=== PATIENT | male | born 1970 | race Caucasian/White ===

== ENCOUNTER 2016-12-25 11:59 | Emergency (ER) | payer SELFPAY ==
--- NOTE | 2016-12-25 12:27 | RAD ---
SHOULDER 2+V RIGHT History:Right shoulder pain for 2 days, unknown injury Comparison: None Findings:3 views right shoulder are submitted. No acute fracture or dislocation is identified. Impression: 1.No acute osseous abnormality is identified.
[2016-12-25 13:00] VITALS: BP 199/102
[2016-12-25] MEDS ORDERED: METH4TAB2 PO (13:40)
[2016-12-25] MEDS ORDERED: CYCL10TA2 PO (13:40)
[2016-12-25] MEDS ORDERED: NAPR500T8 PO (13:40)
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
== END 2016-12-25 13:51 | disposition home or self-care (01) ==
LOC: ER 11:59
DX: M75.81 Other shoulder lesions, right shoulder (principal); F12.10 Cannabis abuse, uncomplicated; F17.200 Nicotine dependence, unspecified, uncomplicated; Z88.5 Allergy status to narcotic agent
CPT/HCPCS: 73030; 99284-25

== ENCOUNTER 2017-12-21 13:53 | Emergency (ER) | payer SELFPAY ==
[2017-12-21 15:45] LABS: INFLUENZA A PATIENT NEGATIVE (NEGATIVE)
[2017-12-21 15:46] LABS: INFLUENZA B PATIENT POSITIVE (NEGATIVE); OBC FLU VALID
== END 2017-12-21 16:08 | disposition home or self-care (01) ==
LOC: ER 16:08
DX: J10.1 Influenza due to other identified influenza virus with other respiratory manifestations (principal); F12.10 Cannabis abuse, uncomplicated; Z88.5 Allergy status to narcotic agent
CPT/HCPCS: 71046; 87804; 87804-59; 99285-25

== ENCOUNTER 2019-05-20 21:39 | Emergency (ER) | payer SELFPAY ==
[~2019-05-20] VITALS: Ht 185.4 cm; Wt 90.7 kg
[~2019-05-20 21:39] MED LIST: BENZ100C PO; CYCL10TA2 PO; METH4TAB2 PO; NAPR500T8 PO; ONDA4TAB10 SL
[2019-05-20 21:42] VITALS: BP 183/96
[2019-05-20] MEDS ORDERED: METH4TAB2 PO (22:18)
[2019-05-20] MEDS ORDERED: CYCL10TA2 PO (22:18)
[2019-05-20] MEDS ORDERED: DICL50TA4 PO (22:18)
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
[2019-05-20] MEDS ORDERED: diazePAM 5 MG TABLET PO ONE (22:30)
[2019-05-20] MEDS ORDERED: predniSONE 10 MG TABLET PO ONE (22:30)
[2019-05-20] MEDS ORDERED: NAPROXEN 500 MG TABLET PO ONE (22:30)
== END 2019-05-20 22:30 | disposition home or self-care (01) ==
LOC: ER 21:39
DX: M25.511 Pain in right shoulder (principal); Z88.5 Allergy status to narcotic agent
CPT/HCPCS: 99284; J7512